=== PATIENT | female | born 1995 | race Caucasian/White ===

== ENCOUNTER 2018-03-13 05:56 | Inpatient (IN) ==
[2018-03-13] MEDS ORDERED: Metoclopramide 10 MG/2 ML VIAL IVP PRN (05:58)
[2018-03-13] MEDS ORDERED: *HR* Nalbuphine 10 MG/ML AMPUL IVP PRN (05:58)
[2018-03-13] MEDS ORDERED: Famotidine 20 MG/2 ML VIAL IVP PRN (05:58)
[2018-03-13] MEDS ORDERED: miSOPROStol 25 MCG TABLET VG PRN (06:04)
[2018-03-13 07:06] LABS: Amphetamine Screen,Urine Negative ng/mL (Cutoff=1000); Barbiturate Screen,Urine Negative ng/mL (Cutoff=200); Benzodiazepines Screen,Urine Negative ng/mL (Cutoff=200); Cannabinoid Screen,Urine Negative ng/mL (Cutoff = 50); Cocaine Screen,Urine Negative ng/mL (Cutoff= 300); Opiate Screen,Urine Negative ng/mL (Cutoff=300); Phencyclidine Screen,Urine Negative ng/mL (Cutoff=25)
[2018-03-13 07:10] LABS: Basophils % 0.3 %; Eosinophils # 0.1 K/mcL (0.0-0.6); Eosinophils % 1.2 %; Immature Granulocytes % 1.5 % (0-4); Lymphocytes # 2.1 K/mcL (0.6-4.6); Lymphocytes % 19.7 %; Mean Corpuscular HGB Conc 32.4 g/dL (31.6-35.5); Mean Corpuscular Hemoglobin 28.4 pg (28.0-33.3); Mean Corpuscular Volume 87.6 fL (83.0-100.0); Mean Platelet Volume 10.2 fL (9.4-12.4); Monocytes # 0.8 K/mcL (0.0-1.3); Monocytes % 7.2 %; Neutrophils # 7.4 K/mcL (1.6-8.9); Platelet Count 277 K/mcL (140-400); Red Blood Count 3.88 M/mcL (3.82-4.97); Segmented Neutrophils % 70.1 %
--- NOTE | 2018-03-13 07:13 | OB/GYN History & Physical ---
Date of Encounter: 03/13/18 Time of Encounter: 07:09 Assessment and Plan (1) 40 weeks gestation of Current visit: Yes Status: Acute admitted for IOL Gannon catheter with 30cc sterile water 25 mcg cytotec vaginally (2) Rh negative status during Current visit: Yes Status: Acute Rhogam evalutation after delivery Qualifiers: Trimester: third trimester Qualified Code(s): O09.893 - Supervision of other high risk pregnancies, third trimester; Z67.91 - Unspecified blood type, Rh negative; Z67.91 - Unspecified blood type, Rh negative History of Present Illness Chief complaint: scheduled IOL at 40w4d HPI: Ms. Alcantar is a 23 year old female at 40w4d presents for scheduled IOL. David score is 9. Patient reports +FM. Denies LOF or VB. Blood type: O negative Rubella: Immune Hep B: Nonreactive GBS: Negative Past Med Surg Social Fam HX - Past Medical History Medical history: non-contributory Psychiatric history: no psych history - Past Surgical History Surgical History: no surgical history - Social History Smoking Status: Never smoker Smokeless Tobacco Status: No Alcohol use: none Drug use: none Occupational status: employed Current living situation: Home - Independent Activity Level: Independent ambulation Recent Out of Country Travel Within the Last 8 Weeks: No Exposure or Possible Exposure to Illness During Travel: No - Family History Mother Living Status: Still Living Hx Family Cardiac Disorders: No Hx Family Respiratory Disorders: No Hx Family Cancer: No Hx Family GI Disorders: No Hx Family Genitourinary Disorders: No Hx Family Endocrine Disorder: No Hx Family Musculoskeletal Disorders: No Hx Family Neuromuscular Disorders: No Hx Family Neurologic Disorders: No Hx Family HEENT Disorders: No Hx Family Autoimmune Disorders: No Hx Family Reproductive Disorders: No Hx Family Psychosocial Disorders: No Hx Family Medical Disorders: No Obstetrical History - Pregnancies : 1 Para: 0 Term: 0 : 0 Ab's: 0 Livin Medications and Allergies Iron Supplement 324 mg PO DAILY 12/12/17 [History] 3 Allergy/AdvReac Type Severity Reaction Status Date / Time No Known Allergies Allergy Verified 12/12/17 14:28 Review of System OB - Constitutional Constitutional ROS IM: no chills, no fever(s), no headache(s) - Cardiovascular Cardiovascular: no edema, no palpitations, no syncope - Respiratory Respiratory: no cough - Gastrointestinal Gastrointestinal: no abdominal pain, no diarrhea, no heartburn, no nausea, no vomiting - Genitourinary Genitourinary: no abnormal vaginal bleeding, no dysuria, no flank pain, no pelvic pain, no urinary frequency, no urinary urgency, no vaginal discharge, no vaginal odor, no vaginal pruritis Exam - Vital Signs Vital signs: Initial Vital Signs Temp Pulse Resp BP 97.5 F L 81 15 136/77 03/13/18 06:14 03/13/18 06:14 03/13/18 06:14 03/13/18 06:14 - Constitutional Constitutional: well developed, well nourished, no acute distress, average body habitus - HEENT HEENT: Normocephaly, Mucus Membranes Moist - Neck Neck exam: full ROM, supple - Lungs Respiratory exam: CTAB - Cardiovascular Cardiovascular exam: RRR, +S1, +S2 - Abdomen Abdomen: Present: bowel sounds normal, gravid, non tender - Extremities Extremities exam: full ROM, normal capillary refill Deep Tendon Reflex Grade: 2+ Normal - Vagina Vagina: Present: normal moisture - Cervix Dilation: 1 Effacement: 80 Station: -1 - Uterus Uterus exam: Present: normal size, normal contour - Anus/Rectum Anus/Rectum: Present: normal perianal skin - Comments Comments: FHR 125 bpm moderate variability +15x15 accels no decels noted. No contractions. Cat. 1 tracing. Gannon catheter placed without difficulty for IOL. 30cc sterile water placed in balloon. 25mcg cytotec placed vaginally. Results All other labs normal. - VTE Reasons for not Prescribing Prophylaxis: Treatment not Indicated - Low risk for VTE
[2018-03-13] MEDS: Ringers Solution, Lactated 1,000 ML IVC SCH ×3 (08:41→18:10)
--- NOTE | 2018-03-13 08:53 | Anesthesia Evaluation PreOp ---
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 Other Medical History: Denies Any Significant HX Anesthesia History: No Prior Anesthetic Complications : Yes (, 40 plus 4) Alcohol Use: none Drug use: none Medications and Allergies Iron Supplement 324 mg PO DAILY 12/12/17 [History] Vit/Iron Fumarate/FA [ Tablet] 1 tab PO DAILY 03/13/18 [History ] 3 Allergy/AdvReac Type Severity Reaction Status Date / Time No Known Allergies Allergy Verified 12/12/17 14:28 - Meds/Allergy Pre-op Review Medications Reviewed: Yes Allergies Reviewed: Yes Beta Blockers on Current Med List: No Anesthesia Results - Labs 03/13/18 06:53 Anesthesia Exam O2 Sat Height 1.57 m Height 1.57 m Weight 69.6 kg Weight 69.6 kg Vital Signs Temp Pulse Resp BP 97.5 F L 81 15 136/77 03/13/18 06:14 03/13/18 06:14 03/13/18 06:14 03/13/18 06:14 Height: 62 Weight: 153 - HEENT Pupil (Motor): Pupils equal Mallampati: II Teeth: Normal Oral Opening: Greater than 3 - CEILING INSTALLER LOC: Oriented CEILING INSTALLER Motor: Normal RUE, Normal LUE, Normal RLE, Normal LLE, Normal Face - Cardiac Rhythm: Regular Murmur: None JVD: No Carotid Bruit: No - Pulmonary Breath Sounds: bilateral Clear Respiratory Effort: Symmetrical Anesthesia Assess/Plan ASA Score: 2 Modified Eloy Scale for Level of Consciousness: Cooperative, oriented, and tranquil Anesthetic Plan: Regional Monitoring Plan: Standard Monitors
[2018-03-13] MEDS ORDERED: Lidocaine -MPF 1% 2 ML VIAL INFILT ONE (09:41)
[2018-03-13] MEDS ORDERED: miSOPROStol 25 MCG TABLET PO PRN (12:21)
[2018-03-13] MEDS ORDERED: Oxytocin 20 units/ LR 1000 mL 20 UNIT/1,000 ML BAG IVC SCH (12:30)
--- NOTE | 2018-03-13 13:00 | Anesthesia Procedures ---
Date of Encounter: 03/13/18 Time of Encounter: 12:59 Procedures: Anesthesia - Epidural/Spinal Patient ID/Chart reviewed: Yes Patient examined: Yes OB Eval: Contractions: Non-stressed pattern Consent Obtained: Yes Supplemental Oxygen: None/Room Air Site Prep: Aseptic Technique Patient position: upright Local Anesthetic: Lidocaine 1% Amount of Local Anesthetic used: 3 Touhy Needle Gauge: 18 Catheter Depth at Skin (cm): 12 Test Dose (1.5% Lido + Epi): Volume given (mls): 3 Test Dose Result: Negative Loading Dose: 0.25% Marcaine (mls): 4 Loading Dose: Fentanyl (mcg): 100 Loading Dose: Other: 2ml nss Loading Dose Administered: Thru Touhy Needle Infusion Med: 0.125% Bupivacaine w/ 2 mcg/ml Fentanyl Infusion Rate (mls/hr): [address]: Tegaderm Interspace Used: L2-L3 Loss of Resistance (LAKHWINDER): Yes Blood: No CSF: No Paresthesia: No
--- NOTE | 2018-03-13 13:18 | OB Labor Progress Note ---
Date of Encounter: 03/13/18 Time of Encounter: 13:17 Labor Progress Note - Subjective Subjective: Pt states feels stronger contractions - Cervix Cervix: Cervical gandhi remains in place - Heart Tones Heart Tones: 130/moderate/+accels/-decels - [place] New Era: 1-3 - Plan Plan: Will start pitocin per policy Nubain and epidural as desires Anticipate
--- NOTE | 2018-03-13 14:55 | OB Labor Progress Note ---
Date of Encounter: 03/13/18 Time of Encounter: 14:54 Labor Progress Note - Subjective Subjective: Pt states painful contractions, does not want epidural at this time. - Cervix Cervix: 4/75/-1 - Heart Tones Heart Tones: 130/moderate/+accels/-decels - [place]: q1. - Interventions Interventions: AROM for small amount of clear fluid 500cc fluid bolus for tachysystole - Plan Plan: Restart pitocin if contractions space out Epidural as desires anticipate
[2018-03-13] MEDS ORDERED: Bupivacaine-MPF 0.25% 10 ML VIAL ONE (17:08)
[2018-03-13] MEDS ORDERED: *HR* FentaNYL (PF) 100 MCG/2 ML VIAL ONE (17:08)
[2018-03-13] MEDS ORDERED: Epidural Premix (fent/bupiv) 110 ML EP ONE (17:26)
[2018-03-13] MEDS ORDERED: EPHEDrine 50 MG/ML VIAL ONE (17:32)
[2018-03-13] MEDS ORDERED: EPHEDrine 50 MG/ML VIAL IVP PRN (17:37)
[2018-03-13] MEDS ORDERED: Bupivacaine-MPF 0.25% 10 ML VIAL EP ONE (17:37)
[2018-03-13] MEDS ORDERED: *HR* FentaNYL (PF) 100 MCG/2 ML VIAL EP ONE (17:37)
--- NOTE | 2018-03-13 17:41 | Anesthesia Procedures ---
Date of Encounter: 03/13/18 Time of Encounter: 17:39 Procedures: Anesthesia - Epidural/Spinal Patient ID/Chart reviewed: Yes Patient examined: Yes OB Eval: Contractions: Non-stressed pattern Consent Obtained: Yes Supplemental Oxygen: None/Room Air Site Prep: Aseptic Technique Patient position: upright Local Anesthetic: Lidocaine 1% Amount of Local Anesthetic used: 3 Touhy Needle Gauge: 18 Touhy Needle Depth (cm): 4 Catheter Depth at Skin (cm): 10 Test Dose (1.5% Lido + Epi): Volume given (mls): 3 Test Dose Result: Negative Loading Dose: 0.25% Marcaine (mls): 6 Loading Dose: Fentanyl (mcg): 100 Loading Dose: Other: 2ml nss Loading Dose Administered: Thru Touhy Needle Infusion Med: 0.125% Bupivacaine w/ 2 mcg/ml Fentanyl Infusion Rate (mls/hr): [address]: Tegaderm Interspace Used: L3-L4 Loss of Resistance (LAKHWINDER): Yes Blood: No CSF: No Paresthesia: No
[2018-03-13] MEDS: Ondansetron 4 MG/2 ML VIAL IVP PRN (18:10)
--- NOTE | 2018-03-13 23:00 | OB Labor Progress Note ---
Date of Encounter: 03/13/18 Time of Encounter: 22:58 Labor Progress Note - Subjective Subjective: Pt comfortable with epidural - Cervix Cervix: 5/90/-1 - Heart Tones Heart Tones: 120/moderate/+accels/variables - [place]: 2-3 - Interventions Interventions: IUPC placed - Plan Plan: Continue to increase pitocin per policy Anticipate
[2018-03-14] MEDS: Ondansetron 4 MG/2 ML VIAL IVP PRN ×3 (00:19→14:10)
[2018-03-14] MEDS ORDERED: Epidural Premix (fent/bupiv) 110 ML EP ONE ×5 (00:23→16:01)
[2018-03-14] MEDS ORDERED: Lidocaine -MPF 2% 5 ML VIAL ONE (06:31)
--- NOTE | 2018-03-14 06:37 | OB Labor Progress Note ---
Date of Encounter: 03/14/18 Time of Encounter: 06:34 Labor Progress Note - Subjective Subjective: Pt getting epidural bolus at this time - Vital Signs Vital Signs: 99.0 at 0512 126/73 - Cervix Cervix: 6cm per RN - Heart Tones Heart Tones: 135/moderate/-accels/-decels - [place]: q2 - Plan Plan: Continue pitocin per policy Frequent repositioning anticipate
[2018-03-14] MEDS ORDERED: Lidocaine 1% 20 ML MDV INFILT PRN (08:37)
[2018-03-14] MEDS: Epidural Premix (fent/bupiv) 110 ML EP SCH ×2 (11:12→16:30)
--- NOTE | 2018-03-14 14:58 | OB Labor Progress Note ---
Date of Encounter: 03/14/18 Time of Encounter: 09:00 Labor Progress Note - Subjective Subjective: Patient reports good pain relief with epidural. - Cervix Cervix: 10/100/0 - Heart Tones Heart Tones: Baseline 140 Moderate variability Accelerations present 15x15 No decelerations FHR category I - [place]: Contractions every 2-2.5 minutes - Interventions Interventions: SVE - Plan Plan: Begin pushing Anticipate Dr. Pagan is OB regional geodetic advisor and is available as needed.
--- NOTE | 2018-03-14 15:58 | OB Labor Progress Note ---
Date of Encounter: 03/14/18 Time of Encounter: 11:00 Labor Progress Note - Subjective Subjective: Patient still comfortable with epidural. Pushing well. - Cervix Cervix: 10/100/+1 - Heart Tones Heart Tones: Baseline 120 Moderate variability Accelerations present 15x15 No decelerations FHR Category I - [place]: Contractions every 3 minutes - Interventions Interventions: Stop pushing and labor down x 1 hour - Plan Plan: Continue expectant management Labor down for 1 hour Anticipate
--- NOTE | 2018-03-14 16:04 | OB Labor Progress Note ---
Date of Encounter: 03/14/18 Time of Encounter: 14:00 Labor Progress Note - Subjective Subjective: Patient comfortable with epidural. - Cervix Cervix: 10/100/0 - Heart Tones Heart Tones: Baseline 120 Moderate variability Accelerations present 15x15 No decelerations FHR category I - [place]: Contractions 2-3 - Interventions Interventions: Consult Dr. Pagan Re: Vacuum Labor down - Plan Plan: Continue expectant management Labor down for [address] Pagan section offered and refused at this time Anticipate Dr. Pagan aware plan of care and agrees
--- NOTE | 2018-03-14 18:48 | OB/GYN Procedure Note ---
Delivery - Delivery Date: 03/14/18 Provider: Anne Watson Intrapartum events: meconium, prolonged labor- > = 20hr, prolonged 2nd stage> 2.5hr Delivery induction: gandhi, misoprostol Delivery augmentation: rupture of membranes, pitocin Delivery monitor: external FHT, external uterine, internal uterine Anesthesia: local, epidural Estimated Blood Loss: 200 - (s) A Delivery Date: 03/14/18 Infant Delivery Time: 17:52 Presentation: vertex Position: FERCHO Route of delivery: Gender: Male Viability: Viable Pounds: 8 Ounces: 2 Weight Gram: 3.7 kg at 1 minute: 7 at 5 mins: 9 Shoulder Dystocia: not encountered Specimens collected: cord blood Placenta: spontaneous Cord: 3 umbilical vessels - Repair Episiotomy: none Laceration Description: Vaginal (left), Labial (left) - Complications Delivery complications: meconium (terminal) Delivery comments: Ms. Alcantar is a 23-year-old G1 now P1 who was admitted for induction of labor for postdates. She progressed with Pitocin augmentation and AROM to the second stage of labor she pushed for 8 hours and 52 minutes. She delivered a viable male infant, FERCHO, over an intact perineum. The mouth and nares were bulb suctioned on the maternal abdomen. No nuchal cord was identified. No shoulder dystocia was encountered. scores were 7 at 1 minute and 9 at 5 minutes. Weight was 8 lbs. 2 oz. (3700g). The placenta delivered spontaneously (Ramírez) , intact, with a three-vessel cord. Inspection revealed a left vaginal, and left labial lacerations. The lacerations were repaired with 3-[address] Pagan was present and assisted with the repair. The uterus was firm with no active bleeding. EBL was 200 mL. Placenta and umbilical artery gases were not sent. There were no complications during the procedure. Mom and baby are her skin the skin following delivery. ATTENDING NOTE: I was called into the room to help with repair. Patient had a left labial laceration which I repaired with 3-0 vicryl. - Disposition Mom disposition: stable in LDR disposition: stable in LDR
[2018-03-14] MEDS ORDERED: Rho Immune Globulin 1,500 UNIT SYRINGE IM PRN (19:48)
[2018-03-14] MEDS ORDERED: Benzocaine/Menthol 56 GM AEROSOL SPRAY TP PRN (19:48)
[2018-03-14] MEDS ORDERED: Oxytocin 20 units/ LR 1000 mL 20 UNIT/1,000 ML BAG IVC SCH (19:48)
[2018-03-14] MEDS: Ibuprofen 600 MG TABLET PO PRN (20:18)
[2018-03-14] MEDS: Acetaminophen 325 MG TABLET PO PRN (23:17)
[2018-03-15] MEDS: Prenatal Vit/FA 1 EACH TABLET PO SCH (08:10)
--- NOTE | 2018-03-15 10:02 | OB/GYN Progress Note ---
Date of Encounter: 03/15/18 Time of Encounter: 09:55 - Assessment and Plan (1) Vaginal delivery Current Visit: Yes Status: Acute PP day 1 Continue routine care Discharge home tomorrow Subjective - Subjective Interval history: States doing well. Reports hemorrhoids uncomfortable, using Tucks with some relief. Labia swollen, encouraged use of ice packs. Lochia light without clots. States baby nursing well with good latch, no breast discomfort. Ambulating and voiding without difficulty. Passing gas, no BM since delivery. Denies abdominal cramping. Anticipate discharge in morning. Patient reports: appetite normal, voiding normally, pain well controlled, ambulating normally [place]: bottle feeding Objective - Latest Vital Signs Latest vital signs: Vital Signs Temp Pulse Resp BP Pulse Ox 03/15/18 08:03 98.4 F 81 16 111/72 03/15/18 04:13 98.0 F 80 16 111/65 96 03/14/18 22:45 98.6 F 93 16 118/71 97 03/14/18 21:50 99.2 F 93 18 129/89 100 03/14/18 20:45 98.3 F 96 16 129/86 99 Intake and Output 03/14/18 03/15/18 03/15/18 23:59 07:59 15:59 Intake Total 0 / 0 300 / 300 120 / 120 Output Total 500 / 500 400 / 400 Balance -500 / -500 -100 / -100 120 / 120 Intake: Oral 0 / 0 300 / 300 120 / 120 Output: Urine 500 / 500 400 / 400 Other: Meal Breakfast Percent of Meal Consumed 100% # Voids 1 Weight 69.8 kg - Exam Lungs: bilateral: normal Chest: Normal S1, Normal S2 Extremities: Present: normal Abdomen: Present: normal appearance, soft, tenderness Uterus: Present: normal Uterus Position: 1 Finger Above Umbilicus, Midline - Labs Labs: Laboratory Results - last 24 hr 03/14/18 07:24 Screen NEGATIVE Baby's Blood Type O RH POSITIVE Mother's Blood Type O RH NEGATIVE Rhogam Indicated YES Rhogam Req for Mother 1
[2018-03-15] MEDS: Acetaminophen 325 MG TABLET PO PRN ×2 (15:50→22:15)
[2018-03-15] MEDS: Ibuprofen 600 MG TABLET PO PRN (18:04)
[2018-03-15] MEDS: Preparation H Ointment 30 GM TUBE TP SCH (21:52)
[2018-03-16 08:08] VITALS: BP 107/59
[2018-03-16] MEDS: Prenatal Vit/FA 1 EACH TABLET PO SCH (08:20)
[2018-03-16] MEDS: Preparation H Ointment 30 GM TUBE TP SCH (08:21)
--- NOTE | 2018-03-16 08:32 | Discharge Summary ---
Date of Encounter: 03/16/18 Time of Encounter: 08:29 - Discharge Diagnosis (1) 40 weeks gestation of Priority: Secondary Status: Acute (2) Rh negative status during Priority: Secondary Status: Acute Comments: Rhogam evaluation Qualifiers: Trimester: third trimester Qualified Code(s): O09.893 - Supervision of other high risk pregnancies, third trimester; Z67.91 - Unspecified blood type, Rh negative; Z67.91 - Unspecified blood type, Rh negative (3) Breast feeding status of mother Priority: Secondary Status: Acute Comments: lactations support prn (4) Vaginal delivery Priority: Primary Status: Acute Comments: continue routine care discharge home today follow up with CNM in 4-6 weeks - Discharge Medications Prescriptions: Ibuprofen [Motrin] 600 mg PO Q6HR PRN #60 tablet PRN Reason: Cramping Breast Pump [BREAST PUMP] 1 each .ROUTE AD #1 each Docusate [Colace] 100 mg PO BID #60 capsule Home Medications: Vit/Iron Fumarate/FA [ Tablet] 1 tab PO DAILY 03/13/18 [History ] Acetaminophen [Tylenol] 650 mg PO Q6HR PRN tablet 03/16/18 [Rx] Benzocaine/Menthol [place] [Dermoplast [place]] 1 appl TP QID PRN aerosol 03/16/18 [Rx] Breast Pump [BREAST PUMP] 1 each .ROUTE AD #1 each 03/16/18 [Rx] Docusate [Colace] 100 mg PO BID #60 capsule 03/16/18 [Rx] Hydrocortisone/Pramoxine [Epifoam] 1 appl TP TID bottle 03/16/18 [Rx] Ibuprofen [Motrin] 600 mg PO Q6HR PRN #60 tablet 03/16/18 [Rx] Vit/FA 1 each PO DAILY tablet 03/16/18 [Rx] Preparation H Ointment 1 appl TP BID tube 03/16/18 [Rx] Allergies/Adverse Reactions: 3 Allergy/AdvReac Type Severity Reaction Status Date / Time No Known Allergies Allergy Verified 12/12/17 14:28 Data Procedures and tests throughout hospitalization: Laboratory Tests 03/13/18 03/13/18 03/14/18 06:51 06:53 07:24 WBC 10.5 RBC 3.88 Hgb 11.0 L Hct 34.0 L MCV 87.6 MCH 28.4 MCHC 32.4 RDW 14.0 Plt Count 277 MPV 10.2 Immature Gran % 1.5 Seg Neutrophils % 70.1 Lymphocytes % 19.7 Monocytes % 7.2 Eosinophils % 1.2 Basophils % 0.3 Neutrophils # 7.4 Lymphocytes # 2.1 Monocytes # 0.8 Eosinophils # 0.1 Basophils # 0.0 Urine Opiates Screen Negative Ur Barbiturates Screen Negative Ur Phencyclidine Scrn Negative Ur Amphetamines Screen Negative U Benzodiazepines Scrn Negative Urine Cocaine Screen Negative U Marijuana (THC) Screen Negative Screen NEGATIVE Baby's Blood Type O RH POSITIVE Mother's Blood Type O RH NEGATIVE Rhogam Indicated YES Rhogam Req for Mother 1 Labs on day of discharge: Labs from last 24 hours 03/14/18 07:24 Screen NEGATIVE Rhogam Req for Mother 1 Date of admission: 03/13/18 05:56 Primary care physician: Heena Montoya MD Consults: 03/14/18 19:48 Consult to Lieutenant Colonel [CONS] Routine Comment: Vaginal delivery, consult needed Discharging clinician: Selene Bocanegra Anticipated date of discharge: 03/16/18 - Patient Status Disposition: Home, Self-Care Condition: Good Functional capacity at discharge: independent ambulation - Discharge Instructions Follow Up With: Heena Montoya MD [Primary Care Provider] - Anne Watson [Advanced Practice Nurse] - - Diet and Activity Activity: increase activity as tolerated Diet: regular diet Hospital Course Reason for admission: induction of labor Delivery: Episiotomy: none Laceration: vaginal side wall, other (labial laceration) Other procedures: none complications: none Discharge diagnosis: IUP at term delivered [place] baby: male (breast feeding) Time Attestation: Total time spent providing and/or coordinating discharge services: Time Spent: Less than 30 minutes Exam - Constitutional Vitals: Temp Pulse Resp BP Pulse Ox 98.1 F 78 16 107/59 96 03/16/18 08:07 03/16/18 08:07 03/16/18 08:07 03/16/18 08:07 03/15/18 20:01 General appearance IM: A&O X 3, pleasant, answers questions appropriately - Respiratory Respiratory exam: Present: CTAB - Cardiovascular Cardiovascular exam IM: Present: RRR, +S1, +S2 - GI/Abdominal GI/Abdominal exam IM: normal bowel sounds - Uterine Tone: Firm Uterus Position: 1 Finger Below Umbilicus, Midline - Extremities Exam Extremities exam IM: Present: full ROM, normal capillary refill, normal inspection - Neurological Exam Neurological exam: alert, oriented X3, reflexes normal
[2018-03-16] MEDS: Ibuprofen 600 MG TABLET PO PRN (09:48)
== END 2018-03-16 13:00 | disposition home or self-care (01) | DRG 775 ==
LOC: 1NENULAB 05:56 → 1NENUOBS 03-14 19:44
PROVIDERS: ADMIT Advanced Practice Midwife; ATTEND Advanced Practice Midwife

== ENCOUNTER 2018-04-20 18:33 | Observation (INO) ==
--- NOTE | 2018-04-20 18:45 | Emergency Department Note ---
Disposition Clinical Impression: Abdominal pain, Appendicitis Disposition: Admitted As Inpatient Condition: Fair General Adult HPI - General Chief complaint: ED Abdominal Pain Stated complaint: abd pain Time Seen by Provider: 04/20/18 18:39 - History of Present Illness Pain Scale: 8 - Related Data Home Medications Medication Instructions Recorded Confirmed Vit/Iron Fumarate/FA 1 tab PO DAILY 03/13/18 03/13/18 [ Tablet] Previous Rx's Medication Instructions Recorded Acetaminophen [Tylenol] 650 mg PO Q6HR PRN tablet 03/16/18 Benzocaine/Menthol [employer] 1 appl TP QID PRN aerosol 03/16/18 [Dermoplast [employer]] Breast Pump [BREAST PUMP] 1 each .ROUTE AD #1 each 03/16/18 Docusate [Colace] 100 mg PO BID #60 capsule 03/16/18 Hydrocortisone/Pramoxine [Epifoam] 1 appl TP TID bottle 03/16/18 Ibuprofen [Motrin] 600 mg PO Q6HR PRN #60 tablet 03/16/18 Vit/FA 1 each PO DAILY tablet 03/16/18 Preparation H Ointment 1 appl TP BID tube 03/16/18 Allergies Allergy/AdvReac Type Severity Reaction Status Date / Time No Known Allergies Allergy Verified 12/12/17 14:28 Past Medical History - Past Medical History Medical history: Reports: non-contributory Surgical history: Reports: no surgical history Psychiatric history: Reports: no psych history - Social History Smoking Status: Never smoker Smokeless Tobacco Status: No Alcohol use: Reports: none Drug use: Reports: none Course Vital Signs Temperature 98.5 F 04/20/18 18:34 Pulse Rate 94 04/20/18 18:34 Respiratory Rate 16 04/20/18 18:34 Blood Pressure 121/84 04/20/18 18:34 O2 Sat by Pulse Oximetry 97 04/20/18 18:34 Temperature 98.5 F 04/20/18 19:34 Pulse Rate 75 04/20/18 21:45 Respiratory Rate 20 04/20/18 21:45 Blood Pressure 116/74 04/20/18 21:45 O2 Sat by Pulse Oximetry 98 04/20/18 21:45 Oxygen Delivery Oxygen Delivery Room Air Medical Decision Making - Lab Data Result diagrams: 04/20/18 19:25 04/20/18 19:25 Lab Results 04/20/18 04/20/18 04/20/18 Range/Units 19:02 19:02 19:25 WBC 10.5 (4.3-11.1) K/mcL RBC 4.23 (3.82-4.97) M/mcL Hgb 11.9 (11.5-15.4) g/dL Hct 36.3 (35.3-44.9) % MCV 85.8 (83.0-100.0) fL MCH 28.1 (28.0-33.3) pg MCHC 32.8 (31.6-35.5) g/dL RDW 12.4 (11.5-14.5) % Plt Count 312 (140-400) K/mcL MPV 9.8 (9.4-12.4) fL Immature Gran % 0.2 (0-4) % Seg Neutrophils % 72.5 % Lymphocytes % 19.8 % Monocytes % 5.8 % Eosinophils % 1.4 % Basophils % 0.3 % Neutrophils # 7.6 (1.6-8.9) K/mcL Lymphocytes # 2.1 (0.6-4.6) K/mcL Monocytes # 0.6 (0.0-1.3) K/mcL Eosinophils # 0.2 (0.0-0.6) K/mcL Basophils # 0.0 (0.0-0.2) K/mcL Sodium (136-145) mEq/L Potassium (3.5-5.1) mEq/L Chloride (98-107) mEq/L Carbon Dioxide (23-29) mEq/L BUN (6-20) mg/dL Creatinine (0.60-1.20) mg/dL Est GFR ( Amer) (> 60) Est GFR (Non-Af Amer) (> 60) BUN/Creatinine Ratio (6-26) Glucose (70-105) mg/dL Calculated Osmolality (280-300) Lactic Acid (0.5-2.2) mmol/L Calcium (8.6-10.3) mg/dL Total Bilirubin (0.3-1.0) mg/dL Direct Bilirubin (0.0-0.2) mg/dL Indirect Bilirubin (0.0-1.2) mg/dL AST (13-39) Units/L ALT (7-52) Units/L Alkaline Phosphatase (34-104) Units/L Serum Total Protein (6.4-8.9) g/dL Albumin (3.5-5.7) g/dL Globulin (2.4-3.5) g/dL Albumin/Globulin Ratio (1.1-2.2) Lipase (11-82) Units/L Urine Color Yellow (Yellow) Urine Clarity Clear (Clear) Urine pH 6.5 (5.0-8.0) pH Units Ur Specific [place] 1.022 (1.010-1.025) Urine Protein Negative (Neg-Trace) mg/dL Urine Glucose (UA) Normal (Normal) mg/dL Urine Ketones Negative (Negative) mg/dL Urine Blood Negative (Negative) Urine Nitrite Negative (Negative) Urine Bilirubin Negative (Negative) Urine Urobilinogen Normal (Normal) mg/dL Ur Leukocyte Esterase Small H (Negative) Urine Microscopic RBC 0-3 (0-3) per hpf Urine Microscopic WBC 15-30 H (0-3) per hpf Ur Squamous Epith Cells Many H (None-Few) per lpf Urine Bacteria None Seen (None-Few) per hpf Hyaline Casts None Seen (None-Few) per lpf Urine Test Negative (Negative) 04/20/18 04/20/18 Range/Units 19:25 19:25 WBC (4.3-11.1) K/mcL RBC (3.82-4.97) M/mcL Hgb (11.5-15.4) g/dL Hct (35.3-44.9) % MCV (83.0-100.0) fL MCH (28.0-33.3) pg MCHC (31.6-35.5) g/dL RDW (11.5-14.5) % Plt Count (140-400) K/mcL MPV (9.4-12.4) fL Immature Gran % (0-4) % Seg Neutrophils % % Lymphocytes % % Monocytes % % Eosinophils % % Basophils % % Neutrophils # (1.6-8.9) K/mcL Lymphocytes # (0.6-4.6) K/mcL Monocytes # (0.0-1.3) K/mcL Eosinophils # (0.0-0.6) K/mcL Basophils # (0.0-0.2) K/mcL Sodium 139 (136-145) mEq/L Potassium 3.7 (3.5-5.1) mEq/L Chloride 103 (98-107) mEq/L Carbon Dioxide 28 (23-29) mEq/L BUN 15 (6-20) mg/dL Creatinine 0.81 (0.60-1.20) mg/dL Est GFR ( Amer) > 60 (> 60) Est GFR (Non-Af Amer) > 60 (> 60) BUN/Creatinine Ratio 19 (6-26) Glucose 88 (70-105) mg/dL Calculated Osmolality 288 (280-300) Lactic Acid 0.7 (0.5-2.2) mmol/L Calcium 9.6 (8.6-10.3) mg/dL Total Bilirubin 0.4 (0.3-1.0) mg/dL Direct Bilirubin 0.0 (0.0-0.2) mg/dL Indirect Bilirubin 0.4 (0.0-1.2) mg/dL AST 10 L (13-39) Units/L ALT 9 (7-52) Units/L Alkaline Phosphatase 113 H (34-104) Units/L Serum Total Protein 7.3 (6.4-8.9) g/dL Albumin 4.4 (3.5-5.7) g/dL Globulin 2.9 (2.4-3.5) g/dL Albumin/Globulin Ratio 1.5 (1.1-2.2) Lipase 25 (11-82) Units/L Urine Color (Yellow) Urine Clarity (Clear) Urine pH (5.0-8.0) pH Units Ur Specific [place] (1.010-1.025) Urine Protein (Neg-Trace) mg/dL Urine Glucose (UA) (Normal) mg/dL Urine Ketones (Negative) mg/dL Urine Blood (Negative) Urine Nitrite (Negative) Urine Bilirubin (Negative) Urine Urobilinogen (Normal) mg/dL Ur Leukocyte Esterase (Negative) Urine Microscopic RBC (0-3) per hpf Urine Microscopic WBC (0-3) per hpf Ur Squamous Epith Cells (None-Few) per lpf Urine Bacteria (None-Few) per hpf Hyaline Casts (None-Few) per lpf Urine Test (Negative) Attestation Statement - Attestation Attestation: I examined this patient and my medical decision-making was reviewed with the Resident Physician. I agree with the documented findings, disposition and treatment plan as described except to the extent set forth below. [id number] time provided Patient presents with right lower quadrant abdominal pain as well as nausea and vomiting. She points to her right lower quadrant when localizing the area of her discomfort. Triage note and vitals reviewed by me. Patient appears in no acute distress on exam
[2018-04-20] MEDS ORDERED: Ondansetron 4 MG/2 ML VIAL IVP ONE (18:53)
[2018-04-20] MEDS ORDERED: 0.9 % Sodium Chloride 1,000 ML IVC ONE (18:53)
[2018-04-20] MEDS ORDERED: *HR* FentaNYL (PF) 100 MCG/2 ML VIAL IVP ONE (18:54)
[2018-04-20] MEDS ORDERED: Isovue-370 500 ML INFUS..BTL IV ONE (18:54)
[2018-04-20 19:09] LABS: Bilirubin,Urine Negative (Negative); Blood,Urine Negative (Negative); Clarity,Urine Clear (Clear); Color,Urine Yellow (Yellow); Glucose,Urine (UA) Normal (Normal); Ketones,Urine Negative (Negative); Leukocyte Esterase,Urine Small (Negative); Nitrite,Urine Negative (Negative); PH,Urine 6.5 pH Units (5.0-8.0); Protein,Urine Negative (Neg-Trace); Specific Gravity,Urine 1.022 (1.010-1.025); Urobilinogen,Urine Normal (Normal)
--- NOTE | 2018-04-20 19:09 | Emergency Department Note ---
Disposition Clinical Impression: Abdominal pain Qualifiers: Abdominal location: right lower quadrant Qualified Code(s): R10.31 - Right lower quadrant pain Appendicitis Qualifiers: Appendicitis type: acute appendicitis Acute appendicitis type: with localized peritonitis Qualified Code(s): K35.3 - Acute appendicitis with localized peritonitis Disposition: Admitted As Inpatient Condition: Fair Forms: ED Satisfaction Letter, Work/School Release Time of Disposition: 21:35 Abdominal Pain HPI - General Chief Complaint: ED Abdominal Pain Stated Complaint: abd pain Time Seen by Provider: 04/20/18 18:39 Source: patient Mode of arrival: ambulatory Limitations: no limitations Nursing Notes Reviewed: Yes Vital Signs Reviewed: Yes - History of Present Illness HPI Narrative: Patient is a 23-year-old female who presents to [facility] ED with a chief complaint of right lower quadrant abdominal pain. States she woke up with this in the middle the night and it was excruciating pain. States in the morning, she was nauseated and vomited multiple times. States rapid a she has been able to eat a few things but has had a decreased appetite. Denies any fevers or chills. No chest pain, difficulty breathing, problems with urination or bowel movements. Patient recently delivered a baby 5 weeks ago without complication. Denies any recent foul-smelling discharge or vaginal bleeding. States she has not been sexually active yet since the delivery. Pt Subjective Complaint: abdominal pain Onset (ago): hour(s) Consistency: constant Location: RLQ Pain Severity: severe Pain Scale: 8 Quality: stabbing, aching Radiation: none Migration to: no migration Improves with: nothing Worsens with: nothing Associated symptoms: Reports: nausea, vomiting. Denies: diarrhea, fever, chills , constipation, dysuria Treatments prior to arrival: none - Related Data Home Medications Medication Instructions Recorded Confirmed Vit/Iron Fumarate/FA 1 tab PO DAILY 03/13/18 03/13/18 [ Tablet] Previous Rx's Medication Instructions Recorded Acetaminophen [Tylenol] 650 mg PO Q6HR PRN tablet 03/16/18 Benzocaine/Menthol [place] 1 appl TP QID PRN aerosol 03/16/18 [Dermoplast [place]] Breast Pump [BREAST PUMP] 1 each .ROUTE AD #1 each 03/16/18 Docusate [Colace] 100 mg PO BID #60 capsule 03/16/18 Hydrocortisone/Pramoxine [Epifoam] 1 appl TP TID bottle 03/16/18 Ibuprofen [Motrin] 600 mg PO Q6HR PRN #60 tablet 03/16/18 Vit/FA 1 each PO DAILY tablet 03/16/18 Preparation H Ointment 1 appl TP BID tube 03/16/18 Allergies Allergy/AdvReac Type Severity Reaction Status Date / Time No Known Allergies Allergy Verified 12/12/17 14:28 All systems ED: reviewed and negative except as stated. Abdominal Pain PMH - Past Medical History Medical history: Reports: non-contributory Female Surgical History: Reports: no surgical history Psychiatric history: Reports: no psych history - Social History Smoking status: Never smoker Alcohol use: Reports: none Drug use: Reports: none Physical Exam - General Limitations: no limitations General appearance: alert, in no apparent distress - Head Head exam: atraumatic, normocephalic, normal inspection - Eye Eye exam: Present: normal appearance, EOMI - ENT ENT exam: normal exam, normal oropharynx, mucous membranes moist - Neck Neck exam: Present: normal inspection, full ROM, trachea midline - Chest Chest inspection: Present: normal inspection, symmetric chest wall rise - Respiratory Respiratory exam: Present: normal lung sounds bilaterally - Cardiovascular Cardiovascular exam: Present: regular rate, normal rhythm, normal heart sounds - Abdominal Exam Abdominal exam: Present: soft, tenderness, hyperactive bowel sounds, Rovsing's sign, tenderness at McBurney's Point Abdominal tenderness: Present: RLQ, severe - Extremities Exam Extremities exam: Present: normal inspection, full ROM. Absent: tenderness, pedal edema - Back Exam Back exam: Present: normal inspection, full ROM. Absent: tenderness - Neurological Exam Neurological exam: Present: alert, oriented X3 - Psychiatric Psychiatric exam: Present: normal affect, normal mood - Skin Skin exam: Present: warm, dry, intact, normal color Course Course Narrative: Patient seen and examined. Right lower quadrant abdominal pain. Concern for possible appendicitis. Abdominal labs, CT abdomen and pelvis with IV contrast ordered. Patient is currently breast-feeding so I encouraged her to pump and dump for the next 24 hours due to both the contrast exposure and the pain medication. 50 g of fentanyl ordered for pain and 4 mg of Zofran ordered for nausea. We will reassess. - Reevaluation(s) Reevaluation #1: Labwork unremarkable. CT of the abdomen and pelvis shows signs of acute appendicitis. Finding was discussed with surgery Dr. Salinas who will be down to see the patient. Patient admitted to surgical service. Time: 21:35 Vital Signs Temperature 98.5 F 04/20/18 18:34 Pulse Rate 94 04/20/18 18:34 Respiratory Rate 16 04/20/18 18:34 Blood Pressure 121/84 04/20/18 18:34 O2 Sat by Pulse Oximetry 97 04/20/18 18:34 Temperature 98.5 F 04/20/18 19:34 Pulse Rate 70 04/20/18 21:12 Respiratory Rate 20 04/20/18 21:12 Blood Pressure 119/73 04/20/18 21:12 O2 Sat by Pulse Oximetry 99 04/20/18 21:12 Oxygen Delivery Oxygen Delivery Room Air Abdominal Pain - Medical Records Medical records reviewed: Yes I reviewed the patient's medical records. - Lab Data Lab results reviewed: Yes I reviewed the patient's lab results. Result diagrams: 04/20/18 19:25 04/20/18 19:25 Lab Results 04/20/18 04/20/18 04/20/18 Range/Units 19:02 19:02 19:25 WBC 10.5 (4.3-11.1) K/mcL RBC 4.23 (3.82-4.97) M/mcL Hgb 11.9 (11.5-15.4) g/dL Hct 36.3 (35.3-44.9) % MCV 85.8 (83.0-100.0) fL MCH 28.1 (28.0-33.3) pg MCHC 32.8 (31.6-35.5) g/dL RDW 12.4 (11.5-14.5) % Plt Count 312 (140-400) K/mcL MPV 9.8 (9.4-12.4) fL Immature Gran % 0.2 (0-4) % Seg Neutrophils % 72.5 % Lymphocytes % 19.8 % Monocytes % 5.8 % Eosinophils % 1.4 % Basophils % 0.3 % Neutrophils # 7.6 (1.6-8.9) K/mcL Lymphocytes # 2.1 (0.6-4.6) K/mcL Monocytes # 0.6 (0.0-1.3) K/mcL Eosinophils # 0.2 (0.0-0.6) K/mcL Basophils # 0.0 (0.0-0.2) K/mcL Sodium (136-145) mEq/L Potassium (3.5-5.1) mEq/L Chloride (98-107) mEq/L Carbon Dioxide (23-29) mEq/L BUN (6-20) mg/dL Creatinine (0.60-1.20) mg/dL Est GFR ( Amer) (> 60) Est GFR (Non-Af Amer) (> 60) BUN/Creatinine Ratio (6-26) Glucose (70-105) mg/dL Calculated Osmolality (280-300) Lactic Acid (0.5-2.2) mmol/L Calcium (8.6-10.3) mg/dL Total Bilirubin (0.3-1.0) mg/dL Direct Bilirubin (0.0-0.2) mg/dL Indirect Bilirubin (0.0-1.2) mg/dL AST (13-39) Units/L ALT (7-52) Units/L Alkaline Phosphatase (34-104) Units/L Serum Total Protein (6.4-8.9) g/dL Albumin (3.5-5.7) g/dL Globulin (2.4-3.5) g/dL Albumin/Globulin Ratio (1.1-2.2) Lipase (11-82) Units/L Urine Color Yellow (Yellow) Urine Clarity Clear (Clear) Urine pH 6.5 (5.0-8.0) pH Units Ur Specific [place] 1.022 (1.010-1.025) Urine Protein Negative (Neg-Trace) mg/dL Urine Glucose (UA) Normal (Normal) mg/dL Urine Ketones Negative (Negative) mg/dL Urine Blood Negative (Negative) Urine Nitrite Negative (Negative) Urine Bilirubin Negative (Negative) Urine Urobilinogen Normal (Normal) mg/dL Ur Leukocyte Esterase Small H (Negative) Urine Microscopic RBC 0-3 (0-3) per hpf Urine Microscopic WBC 15-30 H (0-3) per hpf Ur Squamous Epith Cells Many H (None-Few) per lpf Urine Bacteria None Seen (None-Few) per hpf Hyaline Casts None Seen (None-Few) per lpf Urine Test Negative (Negative) 06/03/18 06/03/18 Range/Units 19:25 19:25 WBC (4.3-11.1) K/mcL RBC (3.82-4.97) M/mcL Hgb (11.5-15.4) g/dL Hct (35.3-44.9) % MCV (83.0-100.0) fL MCH (28.0-33.3) pg MCHC (31.6-35.5) g/dL RDW (11.5-14.5) % Plt Count (140-400) K/mcL MPV (9.4-12.4) fL Immature Gran % (0-4) % Seg Neutrophils % % Lymphocytes % % Monocytes % % Eosinophils % % Basophils % % Neutrophils # (1.6-8.9) K/mcL Lymphocytes # (0.6-4.6) K/mcL Monocytes # (0.0-1.3) K/mcL Eosinophils # (0.0-0.6) K/mcL Basophils # (0.0-0.2) K/mcL Sodium 139 (136-145) mEq/L Potassium 3.7 (3.5-5.1) mEq/L Chloride 103 (98-107) mEq/L Carbon Dioxide 28 (23-29) mEq/L BUN 15 (6-20) mg/dL Creatinine 0.81 (0.60-1.20) mg/dL Est GFR ( Amer) > 60 (> 60) Est GFR (Non-Af Amer) > 60 (> 60) BUN/Creatinine Ratio 19 (6-26) Glucose 88 (70-105) mg/dL Calculated Osmolality 288 (280-300) Lactic Acid 0.7 (0.5-2.2) mmol/L Calcium 9.6 (8.6-10.3) mg/dL Total Bilirubin 0.4 (0.3-1.0) mg/dL Direct Bilirubin 0.0 (0.0-0.2) mg/dL Indirect Bilirubin 0.4 (0.0-1.2) mg/dL AST 10 L (13-39) Units/L ALT 9 (7-52) Units/L Alkaline Phosphatase 113 H (34-104) Units/L Serum Total Protein 7.3 (6.4-8.9) g/dL Albumin 4.4 (3.5-5.7) g/dL Globulin 2.9 (2.4-3.5) g/dL Albumin/Globulin Ratio 1.5 (1.1-2.2) Lipase 25 (11-82) Units/L Urine Color (Yellow) Urine Clarity (Clear) Urine pH (5.0-8.0) pH Units Ur Specific [place] (1.010-1.025) Urine Protein (Neg-Trace) mg/dL Urine Glucose (UA) (Normal) mg/dL Urine Ketones (Negative) mg/dL Urine Blood (Negative) Urine Nitrite (Negative) Urine Bilirubin (Negative) Urine Urobilinogen (Normal) mg/dL Ur Leukocyte Esterase (Negative) Urine Microscopic RBC (0-3) per hpf Urine Microscopic WBC (0-3) per hpf Ur Squamous Epith Cells (None-Few) per lpf Urine Bacteria (None-Few) per hpf Hyaline Casts (None-Few) per lpf Urine Test (Negative) - Radiology Data Radiology results reviewed: Yes I reviewed the patient's radiology results. Abdomen/Pelvis CT 04/20/18 18:54 IMPRESSION: Findings suspicious for appendicitis. No evidence of rupture. D/ / Georges Patel MD / Georges Patel MD Interpreting Provider: Georges Patel MD
[2018-04-20 19:11] LABS: Bacteria,Urine None Seen per hpf (None-Few); Hyaline Casts,Urine None Seen per lpf (None-Few); RBC,Urine 0-3 per hpf (0-3); Squamous Epithelial Cell,Urine Many per lpf (None-Few); WBC,Urine 15-30 per hpf (0-3)
[2018-04-20] MEDS ORDERED: Ondansetron 4 MG/2 ML VIAL ONE ×2 (19:24→23:17)
[2018-04-20 19:47] LABS: Basophils % 0.3 %; Eosinophils # 0.2 K/mcL (0.0-0.6); Eosinophils % 1.4 %; Hematocrit 36.3 % (35.3-44.9); Hemoglobin 11.9 g/dL (11.5-15.4); Immature Granulocytes % 0.2 % (0-4); Lymphocytes # 2.1 K/mcL (0.6-4.6); Lymphocytes % 19.8 %; Mean Corpuscular HGB Conc 32.8 g/dL (31.6-35.5); Mean Corpuscular Hemoglobin 28.1 pg (28.0-33.3); Mean Corpuscular Volume 85.8 fL (83.0-100.0); Mean Platelet Volume 9.8 fL (9.4-12.4); Monocytes # 0.6 K/mcL (0.0-1.3); Monocytes % 5.8 %; Neutrophils # 7.6 K/mcL (1.6-8.9); Platelet Count 312 K/mcL (140-400); Red Blood Count 4.23 M/mcL (3.82-4.97); Red Cell Distribution Width 12.4 % (11.5-14.5); Segmented Neutrophils % 72.5 %
[2018-04-20 20:15] LABS: Alanine Aminotransferase 9 Units/L (7-52); Albumin 4.4 g/dL (3.5-5.7); Albumin/Globulin Ratio 1.5 (1.1-2.2); Alkaline Phosphatase 113 Units/L (34-104); Aspartate Amino Transferase 10 Units/L (13-39); BUN/Creatinine Ratio 19 (6-26); Bilirubin,Indirect 0.4 mg/dL (0.0-1.2); Bilirubin,Total 0.4 mg/dL (0.3-1.0); Blood Urea Nitrogen 15 mg/dL (6-20); Calcium 9.6 mg/dL (8.6-10.3); Carbon Dioxide 28 mEq/L (23-29); Chloride 103 mEq/L (98-107); Globulin 2.9 g/dL (2.4-3.5); Glucose 88 mg/dL (70-105); Lipase 25 Units/L (11-82); Osmolality,Calculated 288 (280-300); Potassium 3.7 mEq/L (3.5-5.1); Sodium 139 mEq/L (136-145); Total Protein 7.3 g/dL (6.4-8.9); eGFR For African Americans > 60 (> 60); eGFR For Non-African Americans > 60 (> 60)
[2018-04-20] MEDS ORDERED: Ketorolac 15 MG/ML VIAL IVP ONE (20:55)
[2018-04-20] MEDS ORDERED: Lidocaine -MPF 4% 5 ML AMPUL ONE (21:24)
[2018-04-20] MEDS ORDERED: Lidocaine -MPF 2% 2 ML VIAL ONE (21:24)
[2018-04-20] MEDS ORDERED: *HR* FentaNYL (PF) 100 MCG/2 ML VIAL ONE (21:24)
[2018-04-20] MEDS ORDERED: *HR* Propofol 200 MG/20 ML VIAL IVP ONE (21:24)
[2018-04-20] MEDS ORDERED: *HR* Midazolam HCl 2 MG/2 ML VIAL ONE (21:24)
[2018-04-20] MEDS ORDERED: *HR* Succinylcholine 200 MG/10 ML VIAL IVP ONE (21:24)
[2018-04-20] MEDS ORDERED: *HR* Rocuronium Bromide 50 MG/5 ML VIAL ONE (21:24)
--- NOTE | 2018-04-20 21:46 | Anesthesia Evaluation PreOp ---
Date of Encounter: 04/20/18 Time of Encounter: 21:44 - Past History Planned Operation: Lap Appy Cardiac History: Denies any Significant Hx Pulmonary History: Asthma (Mild Asthma - no inhaler use in several years) ENERGY SYSTEMS ENGINEER History: Denies Any Significant HX Other Medical History: Denies Any Significant HX Anesthesia History: Past Anesthesia (No prior GA), MH (NO FamHx of MH) : No (5 weeks post-) Test: Negative Alcohol Use: none Drug use: none Medications and Allergies Vit/Iron Fumarate/FA [ Tablet] 1 tab PO DAILY 03/13/18 [History ] Acetaminophen [Tylenol] 650 mg PO Q6HR PRN tablet 03/16/18 [Rx] Benzocaine/Menthol [place] [Dermoplast [place]] 1 appl TP QID PRN aerosol 03/16/18 [Rx] Breast Pump [BREAST PUMP] 1 each .ROUTE AD #1 each 03/16/18 [Rx] Docusate [Colace] 100 mg PO BID #60 capsule 03/16/18 [Rx] Hydrocortisone/Pramoxine [Epifoam] 1 appl TP TID bottle 03/16/18 [Rx] Ibuprofen [Motrin] 600 mg PO Q6HR PRN #60 tablet 03/16/18 [Rx] Vit/FA 1 each PO DAILY tablet 03/16/18 [Rx] Preparation H Ointment 1 appl TP BID tube 03/16/18 [Rx] 3 Allergy/AdvReac Type Severity Reaction Status Date / Time No Known Allergies Allergy Verified 12/12/17 14:28 - Meds/Allergy Pre-op Review Medications Reviewed: Yes Allergies Reviewed: Yes Beta Blockers on Current Med List: No Anesthesia Results - Labs 04/20/18 19:25 04/20/18 19:25 Laboratory Results WBC 10.5 K/mcL (4.3-11.1) 04/20/18 19:25 RBC 4.23 M/mcL (3.82-4.97) 04/20/18 19:25 Hgb 11.9 g/dL (11.5-15.4) 04/20/18 19:25 Hct 36.3 % (35.3-44.9) 04/20/18 19:25 MCV 85.8 fL (83.0-100.0) 04/20/18 19:25 MCH 28.1 pg (28.0-33.3) 04/20/18 19:25 MCHC 32.8 g/dL (31.6-35.5) 04/20/18 19:25 RDW 12.4 % (11.5-14.5) 04/20/18 19:25 Plt Count 312 K/mcL (140-400) 04/20/18 19:25 MPV 9.8 fL (9.4-12.4) 04/20/18 19:25 Immature Gran % 0.2 % (0-4) 04/20/18 19:25 Seg Neutrophils % 72.5 % 04/20/18 19:25 Lymphocytes % 19.8 % 04/20/18 19:25 Monocytes % 5.8 % 04/20/18 19:25 Eosinophils % 1.4 % 04/20/18 19:25 Basophils % 0.3 % 04/20/18 19:25 Neutrophils # 7.6 K/mcL (1.6-8.9) 04/20/18 19:25 Lymphocytes # 2.1 K/mcL (0.6-4.6) 04/20/18 19:25 Monocytes # 0.6 K/mcL (0.0-1.3) 04/20/18 19:25 Eosinophils # 0.2 K/mcL (0.0-0.6) 04/20/18 19:25 Basophils # 0.0 K/mcL (0.0-0.2) 04/20/18 19:25 Sodium 139 mEq/L (136-145) 04/20/18 19:25 Potassium 3.7 mEq/L (3.5-5.1) 04/20/18 19:25 Chloride 103 mEq/L (98-107) 04/20/18 19:25 Carbon Dioxide 28 mEq/L (23-29) 04/20/18 19:25 BUN 15 mg/dL (6-20) 04/20/18 19:25 Creatinine 0.81 mg/dL (0.60-1.20) 04/20/18 19:25 Est GFR ( Amer) > 60 (> 60) 04/20/18 19:25 Est GFR (Non-Af Amer) > 60 (> 60) 04/20/18 19:25 BUN/Creatinine Ratio 19 (6-26) 04/20/18 19:25 Glucose 88 mg/dL (70-105) 04/20/18 19:25 Calculated Osmolality 288 (280-300) 04/20/18 19:25 Lactic Acid 0.7 mmol/L (0.5-2.2) 04/20/18 19:25 Calcium 9.6 mg/dL (8.6-10.3) 04/20/18 19:25 Total Bilirubin 0.4 mg/dL (0.3-1.0) 04/20/18 19:25 Direct Bilirubin 0.0 mg/dL (0.0-0.2) 04/20/18 19:25 Indirect Bilirubin 0.4 mg/dL (0.0-1.2) 04/20/18 19:25 AST 10 Units/L (13-39) L 04/20/18 19:25 ALT 9 Units/L (7-52) 04/20/18 19:25 Alkaline Phosphatase 113 Units/L (34-104) H 04/20/18 19:25 Serum Total Protein 7.3 g/dL (6.4-8.9) 04/20/18 19:25 Albumin 4.4 g/dL (3.5-5.7) 04/20/18 19:25 Globulin 2.9 g/dL (2.4-3.5) 04/20/18 19:25 Albumin/Globulin Ratio 1.5 (1.1-2.2) 04/20/18 19:25 Lipase 25 Units/L (11-82) 04/20/18 19:25 Urine Color Yellow (Yellow) 04/20/18 19:02 Urine Clarity Clear (Clear) 04/20/18 19:02 Urine pH 6.5 pH Units (5.0-8.0) 04/20/18 19:02 Ur Specific [place] 1.022 (1.010-1.025) 04/20/18 19:02 Urine Protein Negative mg/dL (Neg-Trace) 04/20/18 19:02 Urine Glucose (UA) Normal mg/dL (Normal) 04/20/18 19:02 Urine Ketones Negative mg/dL (Negative) 04/20/18 19:02 Urine Blood Negative (Negative) 04/20/18 19:02 Urine Nitrite Negative (Negative) 06/03/18 19:02 Urine Bilirubin Negative (Negative) 04/20/18 19:02 Urine Urobilinogen Normal mg/dL (Normal) 04/20/18 19:02 Ur Leukocyte Esterase Small (Negative) H 04/20/18 19:02 Urine Microscopic RBC 0-3 per hpf (0-3) 04/20/18 19:02 Urine Microscopic WBC 15-30 per hpf (0-3) H 04/20/18 19:02 Ur Squamous Epith Cells Many per lpf (None-Few) H 04/20/18 19:02 Urine Bacteria None Seen per hpf (None-Few) 04/20/18 19:02 Hyaline Casts None Seen per lpf (None-Few) 04/20/18 19:02 Urine Test Negative (Negative) 04/20/18 19:02 Impressions Abdomen/Pelvis CT 04/20/18 18:54 IMPRESSION: Findings suspicious for appendicitis. No evidence of rupture. D/ / Georges Patel MD / Georges Patel MD Interpreting Provider: Georges Patel MD Anesthesia Exam Vital Signs Temp Pulse Resp BP Pulse Ox 04/20/18 21:12 70 20 119/73 99 04/20/18 19:34 98.5 F 94 16 121/84 97 04/20/18 18:34 98.5 F 94 16 121/84 97 Intake and Output 04/20/18 04/20/18 04/20/18 07:59 15:59 23:59 Other: Stool Characteristics Normal for Patient Weight 57.266 kg Patient Weight 04/20/18 23:59 Weight 57.266 kg Height: 5'2" Weight: 126# BMI = 23 NPO (# of Hours): 1700 Pain Scale Used: Numeric (1 - 10) - HEENT Pupil (Motor): Pupils equal, EOMI Mallampati: II Teeth: Normal Oral Opening: Greater than 3 - ENERGY SYSTEMS ENGINEER LOC: Oriented ENERGY SYSTEMS ENGINEER Motor: Normal RUE, Normal LUE, Normal RLE, Normal LLE, Normal Face ENERGY SYSTEMS ENGINEER Sensory: Normal: RUE, LUE, RLE, LLE, Face - Cardiac Rhythm: Regular Murmur: None JVD: No - Pulmonary Breath Sounds: bilateral Clear Respiratory Effort: Symmetrical Anesthesia Assess/Plan ASA Score: 2, E Modified [place] Scale for Level of Consciousness: Cooperative, oriented, and tranquil Anesthetic Plan: General Monitoring Plan: Standard Monitors Recovery Plan: PACU Anes Supervising Prov Stmt: PT seen/evaluated, R&B Discussed, questions answered and consent obtained. Kianna Sherwood MD
--- NOTE | 2018-04-20 22:14 | General Surg History&Physical ---
Date of Encounter: 04/20/18 Time of Encounter: 22:11 Assessment and Plan (1) Appendicitis Current Visit: Yes Status: Acute The assessment and plan as outlined above was discussed with the patient and/or family members who expressed understanding and agreement. All questions were answered. Plan for laparoscopic appendectomy. Risks were explained and she agrees to proceed. Qualifiers: Appendicitis type: acute appendicitis Acute appendicitis type: with localized peritonitis Qualified Code(s): K35.3 - Acute appendicitis with localized peritonitis History of Present Illness Chief complaint: Right Lower quadrant pain HPI: Ms. Alcantar is a 23 year old female with RLQ pain for the last 24 hours. The pain increased since 2 am. She reports N/V. She reports anorexia. She recently delivered a son 5 weeks ago. Past Med Surg Social Fam HX - Past Medical History Medical history: non-contributory Psychiatric history: no psych history - Past Surgical History Surgical History: no surgical history - Social History Smoking Status: Never smoker Smokeless Tobacco Status: No Alcohol use: none Drug use: none - Family History Mother Living Status: Still Living Hx Family Cardiac Disorders: No Hx Family Respiratory Disorders: No Hx Family Cancer: No Hx Family GI Disorders: No Hx Family Endocrine Disorder: No Hx Family Neuromuscular Disorders: No Hx Family Neurologic Disorders: No Hx Family HEENT Disorders: No Hx Family Autoimmune Disorders: No Medications and Allergies Vit/Iron Fumarate/FA [ Tablet] 1 tab PO DAILY 03/13/18 [History ] Acetaminophen [Tylenol] 650 mg PO Q6HR PRN tablet 03/16/18 [Rx] Benzocaine/Menthol [place] [Dermoplast [place]] 1 appl TP QID PRN aerosol 03/16/18 [Rx] Breast Pump [BREAST PUMP] 1 each .ROUTE AD #1 each 03/16/18 [Rx] Docusate [Colace] 100 mg PO BID #60 capsule 03/16/18 [Rx] Hydrocortisone/Pramoxine [Epifoam] 1 appl TP TID bottle 03/16/18 [Rx] Ibuprofen [Motrin] 600 mg PO Q6HR PRN #60 tablet 03/16/18 [Rx] Vit/FA 1 each PO DAILY tablet 03/16/18 [Rx] Preparation H Ointment 1 appl TP BID tube 03/16/18 [Rx] 3 Allergy/AdvReac Type Severity Reaction Status Date / Time No Known Allergies Allergy Verified 12/12/17 14:28 Review of Systems All systems PM: reviewed and no additional remarkable complaints except as stated All systems PM: The remainder of the systems were reviewed and are negative - Constitutional anorexia General Surgery Exam Initial Vital Signs Temp Pulse Resp BP Pulse Ox 98.5 F 94 16 121/84 97 04/20/18 18:34 04/20/18 18:34 04/20/18 18:34 04/20/18 18:34 04/20/18 18:34 - General physical appearance well developed, well nourished, no distress - Eyes PERRL, normal ocular movement - Neck trachea midline - Cardiovascular Cardiovascular exam: Present: RRR - Abdomen Abdomen general surgery: Present: soft Abdominal Tenderness: Present: RLQ - Integumentary Integumentary general surgery: Present: warm and dry, no abnormal pigmentation - Neurologic Present: CN 2-12 grossly intact, normal sensation Results - Labs 04/20/18 19:25 04/20/18 19:25 Abnormal lab results AST 10 Units/L (13-39) L 04/20/18 19:25 Alkaline Phosphatase 113 Units/L (34-104) H 04/20/18 19:25 Ur Leukocyte Esterase Small (Negative) H 04/20/18 19:02 Urine Microscopic WBC 15-30 per hpf (0-3) H 04/20/18 19:02 Ur Squamous Epith Cells Many per lpf (None-Few) H 04/20/18 19:02 All other labs normal. - Imaging CT scan - abdomen: image reviewed CT scan - pelvis: image reviewed
[2018-04-20] MEDS ORDERED: Famotidine 20 MG/2 ML VIAL ONE (22:15)
[2018-04-20] MEDS ORDERED: Acetaminophen IV 1,000 MG/100 ML INFUS..BTL ONE (22:15)
[2018-04-20] MEDS ORDERED: *HR* PHENYLEPHRINE 1,000 MCG/10 ML SYRINGE IVP ONE (22:59)
[2018-04-20] MEDS ORDERED: CefOXitin 2,000 MG VIAL ONE (23:01)
[2018-04-20] MEDS ORDERED: Dexamethasone 4 MG/ML VIAL ONE (23:17)
[2018-04-21] MEDS ORDERED: Lidocaine -MPF 2% 2 ML VIAL ONE (00:17)
[2018-04-21] MEDS ORDERED: Ketorolac 30 MG/ML VIAL ONE (00:47)
[2018-04-21] MEDS ORDERED: *HR* HYDROmorphone (PF) 1 MG/ML SYRINGE ONE (00:49)
[2018-04-21] MEDS ORDERED: Ketorolac 30 MG/ML VIAL IVP ONE (00:55)
[2018-04-21] MEDS ORDERED: *HR* HYDROmorphone 2 MG/ML SYRINGE IVP SCH (01:00)
--- NOTE | 2018-04-21 01:12 | Anesthesia Evaluation Post Op ---
Date of Encounter: 04/21/18 Time of Encounter: 01:10 - Vital Signs Vital Signs: Vital Signs/O2 Sat/Glucose, Most Current Temp Pulse Resp BP Pulse Ox 04/21/18 01:08 99.0 F 110 16 112/68 94 04/21/18 00:58 105 16 117/63 93 04/21/18 00:48 99.0 F 109 16 125/70 94 04/21/18 00:38 108 16 114/82 100 04/21/18 00:28 111 16 123/78 99 04/21/18 00:18 99.1 F 112 16 115/73 99 04/21/18 00:08 112 16 107/69 99 04/20/18 23:58 113 16 117/74 100 04/20/18 23:48 98.6 F 121 16 118/66 99 04/20/18 21:45 75 20 116/74 98 04/20/18 21:12 70 20 119/73 99 - Lungs Lungs: Clear Ascult./Percussion - Airway Airway: Non-obstructed - Cardiovascular Regular Rate - Mental Status Mental Status: Alert & Oriented, Answers Appropriately - Pain Pain Scale: 2 Pain Scale used: Numeric (1 - 10) - Nausea Vomiting Nausea Vomiting: Not Present - Hydration Hydration: Ice chips, Has not voided - Discharge PostOp Status: Transfer Patient to floor Anes Supervising Prov Stmt: Pt seen/evaluated,, VSS and pt has met criteria for discharge to floor. - MD Kaela
[2018-04-21] MEDS ORDERED: Ibuprofen 600 MG TABLET PO PRN (01:38)
[2018-04-21] MEDS ORDERED: *HR* OxyCODONE/APAP 5/325 TABLET PO PRN (01:38)
[2018-04-21] MEDS ORDERED: 0.9 % Sodium Chloride 1,000 ML IVC SCH (01:38)
[2018-04-21 08:38] VITALS: BP 96/52
--- NOTE | 2018-04-21 09:05 | Discharge Summary ---
Orders not resulted at time of discharge: Pending orders 04/20/18 23:22 Surgical Pathology [PTH] Routine Date of Encounter: 04/21/18 Time of Encounter: 09:12 - Discharge Diagnosis (1) Appendicitis Priority: Primary Status: Resolved Qualifiers: Appendicitis type: acute appendicitis Acute appendicitis type: with localized peritonitis Qualified Code(s): K35.3 - Acute appendicitis with localized peritonitis General Surgery Exam Initial Vital Signs Temp Pulse Resp BP Pulse Ox 98.5 F 94 16 121/84 97 04/20/18 18:34 04/20/18 18:34 04/20/18 18:34 04/20/18 18:34 04/20/18 18:34 VITAL SIGNS: Reviewed. See [facility] GENERAL: In no apparent distress. HEENT: Normocephalic, atraumatic, pupils are equal and reactive, extraocular motions intact, oropharynx is pink and moist, there is no neck adenopathy or JVD noted. CHEST/RESPIRATORY: The thorax is free from signs of trauma. Lung sounds: clear to auscultation, normal respiratory effort CARDIAC: Regular rate and rhythm. Normal S1 and S2, without murmurs, gallops, or rubs. VASCULAR: No Edema. 2+ peripheral pulses. ABDOMEN: soft, expected postoperative tenderness, hypoactive bowel sounds INCISION: Surgical incision is clean, dry, and intact. There are no signs of cellulitis or infection noted. WOUNDS/DRAINS: N/A MUSCULOSKELETAL: Good range of motion of all major joints. Extremities without clubbing, cyanosis or edema. NEUROLOGIC EXAM: Alert and oriented x 3. Speech normal. Follows commands. PSYCHIATRIC: Mood normal. SKIN: No rash or lesions. - Hospital Course Hospital course: Ms. Alcantar is a 23 year old female who presented on 04/20/2018 with complaints of right lower quadrant pain for the last 24 hours. She is approximately 5 weeks . She underwent a CT of the abdomen and pelvis which was suspicious for acute appendicitis. She was taken to the OR where she underwent an uncomplicated laparoscopic appendectomy. She is ambulating avoiding without difficulty, tolerating a regular diet without nausea or vomiting, vital signs are stable, afebrile, and her abdominal discomfort is well-controlled. She request no narcotics at discharge she is breast-feeding. We will begin discharge planning to home with a prescription for ibuprofen in a follow-up in the office in 2 weeks. - Time Spent with Patient Total time spent providing and/or coordinating discharge services: - Discharge Medications Prescriptions: Ibuprofen [Motrin] 800 mg PO Q8HR #60 tablet Home Medications: Vit/Iron Fumarate/FA [ Tablet] 1 tab PO DAILY 03/13/18 [History ] Acetaminophen [Tylenol] 650 mg PO Q6HR PRN tablet 03/16/18 [Rx] Benzocaine/Menthol [place] [Dermoplast [place]] 1 appl TP QID PRN aerosol 03/16/18 [Rx] Breast Pump [BREAST PUMP] 1 each .ROUTE AD #1 each 03/16/18 [Rx] Docusate [Colace] 100 mg PO BID #60 capsule 03/16/18 [Rx] Hydrocortisone/Pramoxine [Epifoam] 1 appl TP TID bottle 03/16/18 [Rx] Ibuprofen [Motrin] 600 mg PO Q6HR PRN #60 tablet 03/16/18 [Rx] Vit/FA 1 each PO DAILY tablet 03/16/18 [Rx] Preparation H Ointment 1 appl TP BID tube 03/16/18 [Rx] Ibuprofen [Motrin] 800 mg PO Q8HR #60 tablet 04/21/18 [Rx] Allergies/Adverse Reactions: 3 Allergy/AdvReac Type Severity Reaction Status Date / Time No Known Allergies Allergy Verified 12/12/17 14:28 Date of admission: 04/20/18 21:37 Primary care physician: Heena Montoya MD Discharging clinician: Samuel Carter) Anticipated date of discharge: 04/21/18 - Patient Status Disposition: Home, Self-Care Condition: Fair Functional capacity at discharge: independent ambulation Overall status at discharge: patient is progressing back to baseline - Discharge Instructions Instructions: Laparoscopic Appendectomy (DC) Follow Up With: Heena Montoya MD [Primary Care Provider] - Alesha Carter CNP [Advanced Practice Nurse] - 05/06/18 2:30 pm Additional Instructions: General Surgical Discharge Instructions 1. No pushing, pulling, or lifting greater than 15 lbs for 2-4 weeks (depending upon procedure). 2. You may shower beginning today, but no tub baths, soaking, or swimming for 2 weeks. 3. You may resume driving when you are off narcotics and are safe to react in a car. 4. Take ibuprofen every 8 hours for discomfort. Alternate this with Tylenol every 8 hours so that you have medication available every 4 hours. 5. Take stool softeners (Colace) or a water based laxative (Miralax) while taking narcotics. You may hold for loose stools. 6. Report any fevers greater than 100.5F, increase abdominal discomfort, drainage that looks like pus, increased redness or pain at the surgical site, or any vomiting. 7. Report any pain in the calves, shortness of breath, or rapid heartbeat. 8. Follow-up in the office as directed. - Diet and Activity Activity: increase activity as tolerated Diet: advance to your usual diet
[2018-04-21] MEDS ORDERED: Ibuprofen 800 MG TABLET PO ONE (09:09)
--- NOTE | 2018-04-25 16:18 | Operative Note ---
Date of procedure: 04/20/18 Pre-op diagnosis: Appendicitis Post-op diagnosis: same Procedure: Laparoscopic appendectomy Anesthesia: KENA Surgeon: Samuel Salinas Was there an assistant activities director present: No Estimated blood loss (cc): 5 Specimen: Appendix Condition: stable Disposition: floor Procedure in Detail: After informed consent, patient was taken to the operating room placed in supine position. After adequate sedation anesthesia the abdomen was prepped and draped. A 12 mm cannula was placed in the umbilicus. A 5 mm cannulas placed in suprapubic region and the left lower quadrant. Camera was inserted and the abdomen after a pneumoperitoneum. 2 Alejandra graspers were used to identify the base of the appendix. A appendiceal window was created. A PORFIRIO endoscopic stapler was placed across the base. A vascular load was placed across the mesoappendix. Once the appendix was was placed in an Endobag and removed through the umbilicus. The right lower quadrant was suctioned dry no bleeding was identified. Remainder the pneumoperitoneum was evacuated. The umbilicus was closed with an 0 Vicryl suture in [id number] fashion. Skin was closed with 4-0 Vicryl suture and Dermabond.
== END 2018-04-21 09:41 | disposition home or self-care (01) ==
LOC: 3ANU 18:33 → EMEROO 18:33 → 3ANU 22:33
PROVIDERS: ADMIT Surgery; ATTEND Surgery

== ENCOUNTER → 2021-07-20 18:39 | Observation (INO) | END | disposition home or self-care (01) | LOC: 1NENULAB | PROVIDERS: ADMIT Advanced Practice Midwife; ATTEND Advanced Practice Midwife ==

== ENCOUNTER 2021-07-28 05:52 | Inpatient (IN) ==
[2021-07-28] MEDS ORDERED: *HR* Nalbuphine 10 MG/ML AMPUL IV PRN (05:55)
[2021-07-28] MEDS ORDERED: Azithromycin 500 MG in 0.9 % Sodium Chloride 250 ML IVPB PRN (05:55)
[2021-07-28] MEDS ORDERED: Lidocaine 1% 20 ML MDV INFILT PRN (05:55)
[2021-07-28] MEDS ORDERED: Naloxone 0.4 MG/ML INJ IVP PRN ×2 (05:55→09:23)
[2021-07-28] MEDS ORDERED: Famotidine 20 MG/2 ML VIAL IVP PRN (05:55)
[2021-07-28] MEDS ORDERED: Metoclopramide 10 MG/2 ML VIAL IVP PRN (05:55)
[2021-07-28] MEDS ORDERED: miSOPROStoL 25 MCG TABLET PO PRN (05:55)
[2021-07-28 07:48] LABS: Basophils % 0.4 %; Eosinophils # 0.1 K/mcL (0.0-0.6); Hematocrit 36.6 % (35.3-44.9); Hemoglobin 11.8 g/dL (11.5-15.4); Immature Granulocytes % 1.2 % (0-4); Lymphocytes # 1.8 K/mcL (0.6-4.6); Lymphocytes % 20.2 %; Mean Corpuscular HGB Conc 32.2 g/dL (31.6-35.5); Mean Corpuscular Hemoglobin 28.2 pg (28.0-33.3); Mean Corpuscular Volume 87.6 fL (83.0-100.0); Monocytes # 0.7 K/mcL (0.0-1.3); Monocytes % 7.5 %; Neutrophils # 6.3 K/mcL (1.6-8.9); Platelet Count 243 K/mcL (140-400); Red Blood Count 4.18 M/mcL (3.82-4.97); Red Cell Distribution Width 13.7 % (11.5-14.5); Segmented Neutrophils % 69.7 %; White Blood Count 9.1 K/mcL (4.3-11.1)
[2021-07-28 08:12] LABS: Influenza A PCR Negative (Negative); Influenza B PCR Negative (Negative); Resp. Syncytial Virus PCR Negative (Negative)
[2021-07-28] MEDS: miSOPROStoL 25 MCG TABLET VG ONE (08:14)
[2021-07-28 08:16] LABS: SARS-CoV-2 by PCR (In House) Negative (Negative)
[2021-07-28] MEDS ORDERED: Oxytocin 20 units/ LR 1000 mL 20 UNIT/1,000 ML BAG IVC SCH (09:00)
[2021-07-28] MEDS ORDERED: Ondansetron 4 MG/2 ML VIAL IVP PRN (09:23)
[2021-07-28] MEDS ORDERED: *HR* FentaNYL (PF) 100 MCG/2 ML VIAL EP ONE (09:23)
[2021-07-28] MEDS ORDERED: Ropivacaine/PF 0.2% 20 ML VIAL EP ONE (09:23)
[2021-07-28] MEDS ORDERED: EPHEDrine 50 MG/ML VIAL IVP PRN (09:23)
[2021-07-28] MEDS ORDERED: Epidural Premix (fent/bupiv) 110 ML EP SCH (09:30)
[2021-07-28 10:54] LABS: Amphetamine Screen,Urine Negative ng/mL (Cutoff=1000); Barbiturate Screen,Urine Negative ng/mL (Cutoff=200); Benzodiazepines Screen,Urine Negative ng/mL (Cutoff=200); Cannabinoid Screen,Urine Negative ng/mL (Cutoff = 50); Cocaine Screen,Urine Negative ng/mL (Cutoff= 300); Opiate Screen,Urine Negative ng/mL (Cutoff=300); Phencyclidine Screen,Urine Negative ng/mL (Cutoff=25)
[2021-07-28] MEDS ORDERED: Ropivacaine/PF 0.2% 20 ML VIAL ONE ×2 (17:49→20:34)
[2021-07-28] MEDS: Ondansetron 4 MG/2 ML VIAL IVP PRN (19:51)
[2021-07-28] MEDS ORDERED: EPHEDrine 50 MG/ML VIAL ONE (20:43)
[2021-07-29] MEDS: Ondansetron 4 MG/2 ML VIAL IVP PRN (02:30)
[2021-07-29] MEDS ORDERED: Ondansetron ODT 4 MG TAB.RAPDIS SL PRN (03:49)
[2021-07-29] MEDS ORDERED: Measles/Mumps/Rubella Vacc 0.5 ML VIAL SQ PRN (03:49)
[2021-07-29] MEDS ORDERED: Rho Immune Globulin 1,500 UNIT SYRINGE IM PRN (03:49)
[2021-07-29] MEDS ORDERED: Benzocaine/Menthol 56 GM AEROSOL SPRAY TP PRN (03:49)
[2021-07-29] MEDS ORDERED: Lanolin 7 G OINT...G. TP PRN (03:49)
[2021-07-29] MEDS: Acetaminophen 325 MG TABLET PO SCH ×4 (05:21→18:31)
[2021-07-29] MEDS: Ibuprofen 600 MG TABLET PO SCH ×4 (05:21→18:31)
[2021-07-29] MEDS: Oxytocin 20 units/ LR 1000 mL 20 UNIT/1,000 ML BAG IVC SCH ×4 (07:24→11:51)
[2021-07-29] MEDS: Ringers Solution, Lactated 1,000 ML IVC SCH (07:25)
[2021-07-29] MEDS: miSOPROStoL 25 MCG TABLET VG ONE (07:25)
[2021-07-29] MEDS: Prenatal Vit/FA 1 EACH TABLET PO SCH (09:35)
[2021-07-29] MEDS ORDERED: Methylergonovine 0.2 MG/ML AMPUL IM ONE (16:14)
[2021-07-30] MEDS: Prenatal Vit/FA 1 EACH TABLET PO SCH (08:02)
[2021-07-30 08:13] VITALS: BP 121/76; PULSE 82; TEMP 98.3; O2SAT 97
[2021-07-30] MEDS: Ibuprofen 600 MG TABLET PO SCH (12:23)
== END 2021-07-30 16:15 | disposition home or self-care (01) | DRG 807 ==
LOC: 1NENULAB 05:52 → 1NENUOBS 07-29 03:46
PROVIDERS: ADMIT Registered Nurse; ATTEND Registered Nurse